=== PATIENT | male | born 1970 | race Caucasian/White ===

== ENCOUNTER 2017-02-15 06:15 | Emergency (ER) | payer MEDICARE, MEDICAID ==
[2017-02-15 06:15] VITALS: BMI 23.8
[2017-02-15] MEDS ORDERED: Sodium Chloride 0.9% 1,000 ML IV STA (07:18)
[2017-02-15 08:02] LABS: BASO % 0.2 % (0.0-2.0); EOS # 0.1 K/uL (0.0-0.7); EOS % 0.5 % (0.0-4.0); HEMATOCRIT 48.3 % (35.0-51.0); LYMPH # 0.8 K/uL (1.0-4.3); LYMPH % 6.9 % (20.0-40.0); MEAN CELL VOLUME 99.3 fl (80.0-94.0); MEAN CORPUSCULAR HEMOGLOBIN 32.7 pg (27.0-31.0); MEAN PLATELET VOLUME 8.2 fl (7.2-11.7); MONO # 0.4 K/uL (0.0-0.8); NEUT # 9.8 K/uL (1.8-7.0); NEUT % 88.4 % (50.0-75.0); NRBC % 0.1 % (0.0-0.0); PLATELET COUNT 217 K/uL (130-400); RED CELL DISTRIBUTION WIDTH 15.7 % (11.5-14.5); WHITE BLOOD COUNT 11.1 K/uL (4.8-10.8)
[2017-02-15 08:11] LABS: BILIRUBIN,TOTAL 0.9 mg/dl (0.2-1.3); CALCIUM 10.8 mg/dL (8.4-10.2); POTASSIUM 4.9 MMOL/L (3.6-5.0)
[2017-02-15 08:12] LABS: PARTIAL THROMBOPLASTIN TIME 32.8 Seconds (25.6-37.1)
[2017-02-15 08:15] LABS: ALB/GLOB RATIO 1.3 (1.0-2.1)
--- NOTE | 2017-02-15 09:11 | CARD ---
APPROVED REPORT EKG Measurement Heart [id number] <Conclusion> Sinus rhythm with 1st degree AV block Cannot rule out Inferior infarct, age undetermined Abnormal ECG
--- NOTE | 2017-02-15 09:23 | ED PDOC ---
HPI: Abdomen Chief Complaint (Nursing): Abdominal Pain History Per: Patient History/Exam Limitations: no limitations Onset/Duration Of Symptoms: Gradual Outside of [place] travel?: No Severity: Moderate Location Of Pain/Discomfort: LLQ Quality Of Discomfort: Dull, Aching Associated Symptoms: denies: Fever, Chills, Nausea, Vomiting, Diarrhea, Back Pain, Chest Pain, Constipation, Urinary Symptoms Exacerbating Factors: None Alleviating Factors: None Last Bowel Movement: Today Additional History Per: Patient Additional Complaint(s): Pt. brought to ED via EMS for eval of left lower quadrant pain since 5p yesterday and vomiting since 3:30am today. Pt. also c/o of dark stools, has hx of blood in stool. last dialysis yesterday Past Medical History Reviewed: Historical Data, Nursing Documentation, Vital Signs Vital Signs: Last Vital Signs Temp 97.8 F 02/15/17 06:37 Pulse 91 H 02/15/17 13:40 Resp 22 02/15/17 13:40 BP 125/95 H 02/15/17 11:38 Pulse Ox 100 02/15/17 13:40 - Medical History PMH: Arthritis, Asthma, Fractures, HTN, End Stage Renal Disease, Chronic Kidney Disease Denies: Cardia Arrhythmia, CHF, Hypercholesterolemia, Kidney Stones, Mitral Valve Prolapse, Peripheral Edema - Family History Family History: States: Unknown Family Hx - Living Arrangements Living Arrangements: With Family - Social History Current smoker - smoking cessation education provided: No - Home Medications Home Medications: Ambulatory Orders Medication Instructions Recorded Albuterol 0.083% [Albuterol 0.083% 3 ml INH Q8 PRN 07/06/15 Inhal Shayy (2.5 mg/3 ml) UD] Balsalazide [Colazal] 3 tab PO TID 07/06/15 Budesonide/Formoterol Fumarate 1 puff INH DAILY 07/06/15 [Symbicort 160-4.5 Mcg Inhaler] Carvedilol [Coreg] 1 tab PO BID 07/06/15 Cinacalcet [Sensipar] 180 mg PO DAILY 07/06/15 Oxycodone HCl/Acetaminophen 1 tab PO Q8H PRN 07/06/15 [Endocet 5-325 Tablet] Ranitidine HCl 1 tab PO DAILY 07/06/15 Sevelamer Carbonate [Renvela] 3 tab PO AC 07/06/15 cloNIDine [Catapres] 1 tab PO TID 07/06/15 Amoxicillin/Clavulanate [Augmentin 1 tab PO BID #20 tab 02/15/17 875 MG-125 MG] Ondansetron [Zofran Odt] 4 mg PO TID PRN #14 odt 02/15/17 oxyCODONE/Acetaminophen [Percocet 1 ea PO QID PRN #16 tab 02/15/17 5/325 mg Tab] - Allergies Allergies/Adverse Reactions: Allergies Allergy/AdvReac Type Severity Reaction Status Date / Time erythromycin base Allergy RASH Verified 02/15/17 06:41 Penicillins Allergy RASH Verified 02/15/17 06:41 vancomycin Allergy REDNESS Verified 02/15/17 06:41 Review of Systems ROS Statement: Except As Marked, All Systems Reviewed And Found Negative Constitutional: Negative for: Fever, Chills Cardiovascular: Negative for: Chest Pain, Palpitations Respiratory: Negative for: Cough, Shortness of Breath Gastrointestinal: Positive for: Nausea, Abdominal Pain, Melena. Negative for: Vomiting, Constipation, Hematochezia, Hematemesis, Rectal Pain Genitourinary Male: Negative for: Dysuria, Scrotal Pain Musculoskeletal: Negative for: Neck Pain Neurological: Negative for: Weakness, Numbness Physical Exam - Reviewed Nursing Documentation Reviewed: Yes Vital Signs Reviewed: Yes - Physical Exam Appears: Positive for: Uncomfortable Head Exam: Positive for: ATRAUMATIC, NORMAL INSPECTION, NORMOCEPHALIC Eye Exam: Positive for: Normal appearance, EOMI, PERRL Neck: Positive for: Normal, Painless ROM, Supple Cardiovascular/Chest: Positive for: Regular Rate, Rhythm, Chest Non Tender. Negative for: Edema, Gallop, Murmur, Bradycardia, Tachycardia Respiratory: Positive for: Normal Breath Sounds. Negative for: Decreased Breath Sounds, Accessory Muscle Use, Crackles, Rales, Rhonchi, Stridor, Wheezing , Respiratory Distress Gastrointestinal/Abdominal: Positive for: Bowel Sounds, Soft, Tenderness (mild llq). Negative for: Organomegaly, Mass, Distended, Guarding Male Genital Exam: Positive for: normal genitalia, no hernia, other. Negative for: scrotum tenderness (R), scrotum tenderness (L), testicular tenderness (R), testicular tenderness (L) Back: Positive for: Other (marked scoliosis) Rectal: Positive for: Rectal Tone Is: (nml), Stool Is Heme: (pos trace). Negative for: Hemorrhoids, Mass, Tenderness Extremity: Positive for: Normal ROM. Negative for: Tenderness, Pedal Edema Neurologic/Psych: Positive for: Alert, obstetrician II-XII, Oriented, Mood/Affect (calm) . Negative for: Motor/Sensory Deficits, Aphasia, Facial Droop - Laboratory Results Result Diagrams: 02/15/17 07:40 02/15/17 07:40 - ECG ECG: Positive for: Interpreted By Me ECG Rhythm: Positive for: Normal QRS, Normal ST Segment, Sinus Rhythm. Negative for: ST/T Changes Interpretation Of Abn EKG: rate of 98, no evidence if ischemia O2 Sat by Pulse Oximetry: 100 Pulse Ox Interpretation: Normal - Progress ED Course And Treament: destiny po here repat abd exam non tender. advise close outpt f/u for ct scan findings pt leaves in good spirits. Re-evaluation Time: 12:00 Condition: Improved Medical Decision Making Medical Decision Making: IMPRESSION: Limited assessment without IV or oral contrast administration. No evidence of diverticulitis. Fullness and diffuse enlargement of the pancreatic head associated with mild to moderate dilatation of the main pancreatic duct. The possibility of neoplasm at the pancreatic head should be excluded. No evidence of intrahepatic biliary ductal dilatation. Circumferential wall thickening at the ascending colon suspicious for neoplasm versus less likely focal colitis. No evidence of bowel obstruction. Hepato splenomegaly of uncertain etiology. Small kidneys consistent with end stage renal disease. Markedly heterogeneous and abnormal appearance of the osseous structures. The differential diagnosis includes advanced renal osteodystrophy versus other systemic or metabolic disease. Disposition - Clinical Impression Clinical Impression: Abdominal pain - Patient ED Disposition Is Patient to be Admitted: No Counseled Patient/Family Regarding: Studies Performed, Diagnosis, Need For Followup, Rx Given - Disposition Referrals: Trevon Gomez MD [Medical Doctor] - (2 to 3 days) Disposition: Routine/Home Disposition Time: 12:00 Condition: STABLE Prescriptions: Amoxicillin/Clavulanate [Augmentin 875 MG-125 MG] 1 tab PO BID #20 tab Ondansetron [Zofran Odt] 4 mg PO TID PRN #14 odt PRN Reason: Nausea/Vomiting oxyCODONE/Acetaminophen [Percocet 5/325 mg Tab] 1 ea PO QID PRN #16 tab PRN Reason: Pain, Moderate (4-7) Instructions: Colitis (ED) Forms: [employer] ([place])
--- NOTE | 2017-02-15 11:09 | CT ---
PROCEDURE: CT Abdomen and Pelvis without intravenous contrast HISTORY: LLQ r/o diverticulitis. 47 years old male with history of end-stage renal disease last dialysis yesterday history of dark stool, history of blood in stool. COMPARISON: None. TECHNIQUE: Axial and reformatted coronal and sagittal CT images of the abdomen and pelvis were obtained without IV or oral contrast administration.. Contrast Dose: 0 Radiation dose: Total exam DLP = 556.06 mGy-cm. This CT exam was performed using one or more of the following dose reduction techniques: Automated exposure control, adjustment of the mA and/or kV according to patient size, and/or use of iterative reconstruction technique. FINDINGS: LOWER THORAX: No evidence of acute pathology at the lung bases. LIVER: The liver is [id number] enlarged. Note definite evidence of mass lesion or fluid collection in the liver in this noncontrast study. GALLBLADDER AND BILE DUCTS: Distended gallbladder without evidence of acute cholecystitis. PANCREAS: There is mild diffuse enlargement of the pancreatic head. There is mild to moderate dilate a welsh of the main pancreatic duct measures up to 6.2 millimeter. SPLEEN: The spleen is mildly enlarged. ADRENALS: Unremarkable. No mass. KIDNEYS AND URETERS: The kidneys are small in size demonstrate thin heterogeneous cortex and contains multiple vascular calcification consistent with the patient's history of endstage renal disease. There are multiple small cystic lesions in both kidneys. VASCULATURE: There are diffuse calcification in the visualized arteries in the abdomen and pelvis. There is no evidence of abdominal aortic aneurysm. BOWEL: There is focal significant wall circumferential wall thickening of the ascending colon highly suspicious for neoplasm best seen on images 35 to 38. There is no evidence of bowel obstruction. Few scattered colonic diverticulosis seen without evidence of diverticulitis. APPENDIX: There is no evidence of appendicitis. PERITONEUM: Unremarkable. No free fluid. No free air. LYMPH NODES: Unremarkable. No enlarged lymph nodes. BLADDER: Unremarkable. REPRODUCTIVE: Unremarkable. BONES: Market diffuse heterogeneous attenuation of the osseous structure associated with scattered diffuse lytic foci in the osseous structures. There are multilevel compression deformity in the spine. The patient is status post total left hip replacement. OTHER FINDINGS: None. IMPRESSION: Limited assessment without IV or oral contrast administration. No evidence of diverticulitis. Fullness and diffuse enlargement of the pancreatic head associated with mild to moderate dilatation of the main pancreatic duct. The possibility of neoplasm at the pancreatic head should be excluded. No evidence of intrahepatic biliary ductal dilatation. Circumferential wall thickening at the ascending colon suspicious for neoplasm versus less likely focal colitis. No evidence of bowel obstruction. Hepato splenomegaly of uncertain etiology. Small kidneys consistent with end stage renal disease. Markedly heterogeneous and abnormal appearance of the osseous structures. The differential diagnosis includes advanced renal osteodystrophy versus other systemic or metabolic disease.
[2017-02-15 11:15] LABS: BASOPHIL 1 % (0-2); NEUTROPHIL 88 % (42-75); TOTAL CELLS COUNTED 100
[2017-02-15 15:05] VITALS: TEMP 97.5
[2017-02-15 16:30] VITALS: BP 122/77; PULSE 95; RESP 14; O2SAT 100
== END 2017-02-15 16:28 | disposition home or self-care (01) ==
LOC: H.ER 06:15
DX: I12.0 Hypertensive chronic kidney disease with stage 5 chronic kidney disease or end stage renal disease (principal); Z88.0 Allergy status to penicillin; Z99.2 Dependence on renal dialysis
CPT/HCPCS: 74176; 80053; 83605; 83690; 85025; 85610; 85730; 86850; 86900; 93005; 96361; 96374; 96375; 96376; 99285; J2270; J2405; J7040